=== PATIENT | male | born 1990 ===

== ENCOUNTER 2022-05-11 14:39 | Emergency (ER) | payer SELFPAY ==
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
[2022-05-11 15:41] LABS: Amphetamine Screen,Urine Negative; Benzodiazepines Screen,Urine Negative; Methadone Screen,Urine Negative; Opiate Screen,Urine Negative
[2022-05-11 15:56] LABS: Basophils % (Auto) 0.7 % (0.0-1.8); Eosinophils # (Auto) 0.2 K/mm3 (0.0-0.4); Eosinophils % (Auto) 3.7 % (0.0-4.3); Hemoglobin 15.7 gm/dl (11.8-15.2); Lymphocytes # (Auto) 1.6 K/mm3 (1.2-5.4); Mean Corpuscular HGB Conc 34 % (32-34); Mean Corpuscular Volume 92 fl (84-94); Monocytes # (Auto) 0.6 K/mm3 (0.0-0.8); Monocytes % (Auto) 10.5 % (0.0-7.3); Platelet Count 230 K/mm3 (140-440); Red Blood Count 5.01 M/mm3 (3.65-5.03)
[2022-05-11 16:05] LABS: Bilirubin,Urine NEG (Negative); Blood,Urine NEG (Negative); Color,Urine Yellow (Yellow); Protein,Urine <15 mg/dL mg/dL (Negative)
[2022-05-11 16:12] LABS: Mucus,Urine 2+ /HPF
[2022-05-11 16:17] LABS: Blood Urea Nitrogen 21 mg/dL (9-20); Calcium 9.3 mg/dL (8.4-10.2); Hemolysis Index 8
[2022-05-11 16:19] LABS: BUN/Creatinine Ratio 30
[2022-05-11 16:22] LABS: Cannabinoid Screen,Urine Positive; Cocaine Screen,Urine Positive
[2022-05-12] MEDS ORDERED: ZIPRASIDONE MESYLATE 20 MG VIAL IM ONE ×2 (08:14→11:00)
[2022-05-12] MEDS ORDERED: diphenhydrAMINE 50 MG/ML VIAL IV ONE ×2 (08:15→11:00)
[2022-05-12] MEDS ORDERED: LORazepam 2 MG/ML VIAL IV ONE ×2 (08:16→11:00)
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
[2022-05-12] MEDS ORDERED: LORazepam 2 MG/ML VIAL IM PRN (21:46)
[2022-05-12] MEDS ORDERED: ZIPRASIDONE MESYLATE 20 MG VIAL IM PRN (21:46)
[2022-05-13] MEDS ORDERED: diphenhydrAMINE 50 MG/ML VIAL IV ONE (08:31)
[2022-05-13] MEDS ORDERED: WATER FOR INJ Sterile (PF) 10 ML ONE ×2 (08:57→09:02)
--- NOTE | 2022-05-13 12:09 | Emergency Department Report ---
Blank Doc - Documentation Documentation: 32-year-old male currently on 1013 for suicidal ideation awaiting placement. COVID test ordered with collection pending at this. No events documented overnight. Vital signs remarkable. Nurse practitioner note from today pending
--- NOTE | 2022-05-13 13:44 | Progress Note ---
Subjective - Reason for Consult Consult date: 05/13/22 Reason for consult: Psychosis - Chief Complaint Chief complaint: The patient was seen today. He continues to present with disorganized thoughts. Patient is loud and verbally abuse. REVIEW OF SYSTEMS MENTAL STATUS EXAMINATION Assessment and Plan (1) Schizophrenia Treatment 1013 Continue home meds. Zyprexa 10mg po BID Sitter: Per primary Medical: Per primary Disposition: Recommend acute inpatient psychiatric treatment. Will follow. Thanks Case staffed with Dr. Youssef Medications and Allergies Medications and Allergies Mental Status Exam - Vital signs Last Vital Signs Temp 97.8 F 05/12/22 08:25 Pulse 89 05/12/22 08:25 Resp 20 05/12/22 08:25 BP 128/74 05/12/22 08:25 Pulse Ox 99 05/12/22 08:25
--- NOTE | 2022-05-14 10:11 | Progress Note ---
Subjective - Reason for Consult Consult date: 05/14/22 Reason for consult: psychosis - Chief Complaint Chief complaint: The patient was seen this morning. He is calm, alert and oriented x4. The patient is Lucid today. He reports feeling better, states sleep and appetite as good. he denies any current suicidal ideation and denies hallucinations. REVIEW OF SYSTEMS Constitutional: Negative for weight loss ENT: Negative for stridor Respiratory: Negative for cough or hemoptysis All other systems reviewed and are negative MENTAL STATUS EXAMINATION General Appearance and Behavior: Age appropriate, poor hygiene, wearing appropriate clothes, fair eye contact, cooperative polite with questioning. Cooperation: Participating/engaged Psychomotor Behavior: unremarkable and within normal limits Mood: calm Affect and affective range: congruent with mood Thought Process: Goal directed Thought Content: Reality oriented Speech: Normal volume, Regular rate and rhythm, Suicidal Ideation:Denies Homicidal Ideation: Denies Hallucinations: Denies Delusions: None Impulse Control: Normal Insight and Judgment: Limited insight and judgment, Memory: Normal, Attention: Normal, Orientation: Alert, oriented x 3 Assessment and Plan (1) Schizophrenia Treatment 1013 Continue home meds. Start Abilify 15mg po daily Start Trazodone 50mg po QHS Sitter: Per primary Medical: Per primary Disposition: Recommend acute inpatient psychiatric treatment. Will follow. Thanks Case staffed with Dr. Youssef Medications and Allergies Mental Status Exam Medications and Allergies Medications and Allergies Mental Status Exam - Vital signs Last Vital Signs Temp 97.8 F 05/14/22 08:32 Pulse 65 05/14/22 08:32 Resp 18 05/14/22 08:32 BP 137/75 05/14/22 08:32 Pulse Ox 100 05/14/22 08:37
[2022-05-14] MEDS ORDERED: ARIPiprazole 15 MG TAB PO SCH (11:00)
--- NOTE | 2022-05-14 18:55 | Event Note ---
Date: 05/14/22 The patient was evaluated in the emergency department for symptoms described in the history of present illness. He/she was evaluated in the context of the global COVID-19 pandemic, which necessitated consideration that the patient might be at risk for infection with the virus that causes COVID-19. Institutional protocols and algorithms that pertain to the evaluation of patients at risk for COVID-19 are in a state of rapid change based on information released by regulatory bodies including the CDC and federal and state organizations. These policies and algorithms were followed during the patient's care in the emergency department. Please note that these policies, procedures and recommendations changed on a rapid basis. Laboratory studies, vital signs, nursing documentation, ER documentation, and psychiatric documentation are reviewed and appreciated. Nursing team reports no acute events this morning or concerns. The patient is awake and ambulating and does not appear to be in any acute distress. The patient was deemed medically suitable for psychiatric disposition and placement during his initial ER evaluation. The patient continues to remain medically suitable for psychiatric placement and disposition. He is currently pending psychiatric placement.
[2022-05-14] MEDS ORDERED: NICOTINE 14 MG/24 HR PATCH TD ONE (22:00)
[2022-05-14] MEDS ORDERED: traZODone 50 MG TAB PO SCH (22:00)
[2022-05-15 10:12] VITALS: BP 123/63
--- NOTE | 2022-05-15 11:35 | Progress Note ---
Subjective - Reason for Consult Consult date: 05/15/22 Reason for consult: Psychosis - Chief Complaint Chief complaint: The patient was seen this morning. He is calm, alert and oriented x4. He reports doing well, states sleep and appetite as good. He denies any current suicidal ideation and denies hallucinations. REVIEW OF SYSTEMS Constitutional: Negative for weight loss ENT: Negative for stridor Respiratory: Negative for cough or hemoptysis All other systems reviewed and are negative MENTAL STATUS EXAMINATION General Appearance and Behavior: Age appropriate, poor hygiene, wearing appropriate clothes, good eye contact, cooperative polite with questioning. Cooperation: Participating/engaged Psychomotor Behavior: unremarkable and within normal limits Mood: calm Affect and affective range: congruent with mood Thought Process: Goal directed Thought Content: Reality oriented Speech: Normal volume, Regular rate and rhythm, Suicidal Ideation:Denies Homicidal Ideation: Denies Hallucinations: Denies Delusions: None Impulse Control: Normal Insight and Judgment: Limited insight and judgment, Memory: Normal, Attention: Normal, Orientation: Alert, oriented x 3 Assessment and Plan (1) Schizophrenia Treatment [place] 1013 Continue home meds. Continue Abilify 15mg po daily Continue Trazodone 50mg po QHS Sitter: Per primary Medical: Per primary Disposition:Do not recommend acute inpatient psychiatric treatment. [facility] will provide patient with outpatient resources. Will sign off. Thanks Case staffed with Dr. Youssef Medications and Allergies Mental Status Exam Medications and Allergies Medications and Allergies Mental Status Exam - Vital signs Last Vital Signs Temp 97.6 F 05/15/22 10:11 Pulse 93 H 05/15/22 10:11 Resp 18 05/15/22 10:11 BP 123/63 05/15/22 10:11 Pulse Ox 100 05/15/22 10:11
== END 2022-05-15 12:49 | disposition home or self-care (01) ==
LOC: EEVIPCON 14:39 → ED 14:39
DX: R45.851 Suicidal ideations (principal); F20.9 Schizophrenia, unspecified; F14.10 Cocaine abuse, uncomplicated; Z20.822 Contact with and (suspected) exposure to COVID-19; Z13.30 Encounter for screening examination for mental health and behavioral disorders, unspecified; Z91.09 Other allergy status, other than to drugs and biological substances; Z79.899 Other long term (current) drug therapy
CPT/HCPCS: 36415; 80048; 80307; 81001; 85025; 96372; 96374; 96375; 96376; 99285; J1200; J2060; J3486; U0003; 80320; 99284; G0480